=== PATIENT | male | born 1980 | race Caucasian/White ===

== ENCOUNTER → 2016-11-21 | Outpatient (CLI) | payer MEDICAID ==
--- NOTE | 2016-11-21 18:16 | DX ---
Left Knee, Four or More Views History: M25.562. Comparison: None. Findings: No acute fracture or dislocation identified. Slight lateral patellar tilt, without patell ofemoral joint space narrowing. No tibiofemoral joint space narrowing. No significant osteophytes o f the tibiotalar joint space. No destructive osseous lesions. Impressions 1. No definite acute fracture. 2. Slight lateral patellar tilt. 3. No significant degenerative changes.
== END ==
LOC: FIMAGING 12:13
PROVIDERS: ATTEND Family Medicine
DX: M25.562 Pain in left knee (principal)